=== PATIENT | female | born 1965 | race Caucasian/White ===

== ENCOUNTER 2017-03-09 02:27 | Emergency (ER) | payer OTHER ==
[2017-03-09 02:46] VITALS: BP 163/118
[2017-03-09] MEDS ORDERED: HYDROmorphone 1 MG/ML Syringe IVPUSH ONE (03:33)
[2017-03-09] MEDS ORDERED: Ondansetron 4 MG/2 ML SDV IVPUSH ONE (03:33)
[2017-03-09] MEDS ORDERED: Sodium Chloride 0.9% 1,000 ML IV SCH (03:45)
[2017-03-09] MEDS ORDERED: Diatrizoate Meglumine/Diatrizoate Sodium 37% 120 ML Bottle PO ONE (04:30)
[2017-03-09] MEDS ORDERED: Sodium Chloride 0.9% 10 ML Syringe FLUSH PRN (04:30)
[2017-03-09] MEDS ORDERED: Iopamidol 612 MG/ML 100 ML Bottle IVPUSH ONE (04:30)
--- NOTE | 2017-03-09 04:46 | EDM.PDOC ---
ED HPI GENERAL MEDICAL PROBLEM - General Chief Complaint: Abdominal Pain Stated Complaint: BAD STOMACH PAIN/STOMACH STICKING OUT Time Seen by Provider: 03/09/17 03:00 Source of Information: Reports: Patient, RN Notes Reviewed, Significant Other ( Fiance) History Limitations: Reports: No Limitations - History of Present Illness INITIAL COMMENTS - FREE TEXT/NARRATIVE: The patient states that she has been experiencing upper abdominal pain since Thursday night, 03/04/2017. She states that the pain is sharp/stabbing, and that it waxes and wanes, although has been gone every morning. It recurs after she eats and drinks. When present, she has not identified any modifiers. She denies recent nausea, vomiting, fever, or urinary symptoms. She states that she has had loose bowel movements, but was concerned that she may have some solid stool in the colon, therefore drank some Epsom salts yesterday morning, which further increased her loose bowel movements. The patient has had similar symptoms previously, although less severe. She states that she has abdominal bloating and cramps proximal he wants or twice a week, for years. She has never previously sought medical evaluation. The patient and her fianc are visiting from [place] for a wedding. She reports that she has been drinking tonight, with her last drink around 22:00. Abdomen Pain Score (Numeric/FACES): 10 - Related Data Allergies Allergy/AdvReac Type Severity Reaction Status Date / Time aspirin Allergy cant Verified 03/09/17 03:04 remember Sulfa (Sulfonamide Allergy can't Verified 03/09/17 03:05 Antibiotics) remember Home Meds: Home Meds Acetaminophen/Codeine [Tylenol with Codeine No.3 300MG/30MG] 1 tab PO Q4HR PRN 03/09/17 [History] Diazepam [Valium] 1 tab PO TID 03/09/17 [History] Past Medical History Musculoskeletal History: Reports: Back Pain, Chronic Psychiatric History: Reports: Anxiety - Past Surgical History Female Surgical History: Reports: Section (x 1), Cervical Conization , Tubal Ligation Neurological Surgical History: Reports: Lumbar Spine (L4 discectomy) Social & Family History - Tobacco Use Smoking Status *Q: Current Every Day Smoker Years of Tobacco use: 32 Packs/Tins Daily: 1 - Alcohol Use Alcohol Use History: Yes Alcohol Use Frequency: Socially - Recreational Drug Use Recreational Drug Use: Yes Drug Use in Last 12 Months: Yes Recreational Drug Type: Reports: Marijuana/Hashish Recreational Drug Use Frequency: Daily - Living Situation & Occupation Living situation: Reports: Single, with Significant Other (Fiance) Occupation: Employed ([employer]) ED ROS GENERAL - Review of Systems Review Of Systems: See Below Constitutional: Reports: Fever (About 10 days ago), Chills (About 10 days ago) HEENT: Reports: No Symptoms Respiratory: Reports: No Symptoms Cardiovascular: Reports: No Symptoms Endocrine: Reports: No Symptoms GI/Abdominal: Reports: Nausea (About 10 days ago) : Reports: No Symptoms Musculoskeletal: Reports: No Symptoms Skin: Reports: No Symptoms Neurological: Reports: No Symptoms Psychiatric: Reports: No Symptoms Hematologic/Lymphatic: Reports: No Symptoms Immunologic: Reports: No Symptoms ED EXAM, GI/ABD - Physical Exam Exam: See Below Exam Limited By: No Limitations General Appearance: Alert, WD/WN, Anxious (Appears to be hyperventilating), Moderate Distress Eyes: Bilateral: Normal Appearance, EOMI Ears: Normal External Exam, Hearing Grossly Normal Nose: Normal Inspection, No Blood Throat/Mouth: Normal Inspection, Normal Lips, Normal Voice, No Airway Compromise Head: Atraumatic, Normocephalic Neck: Normal Inspection, Full Range of Motion Respiratory/Chest: No Respiratory Distress, Lungs Clear, Normal Breath Sounds, No Accessory Muscle Use Cardiovascular: Normal Peripheral Pulses, Regular Rate, Rhythm, No Gallop, No JVD, No Murmur, No Rub GI/Abdominal Exam: Normal Bowel Sounds, Soft, No Organomegaly, No Distention, No Abnormal Bruit, No Mass, Tender (Entire abdomen, although primarily to the epigastric region). No: Guarding (Female) Exam: Deferred Rectal (Female) Exam: Deferred Back Exam: Normal Inspection, Full Range of Motion, CVA Tenderness (L) (mild). No: CVA Tenderness (R) Extremities: Normal Inspection, Normal Range of Motion, No Pedal Edema, Normal Capillary Refill Neurological: Alert, Oriented, Normal Cognition, No Motor/Sensory Deficits Psychiatric: Normal Affect, Anxious Skin Exam: Warm, Dry, Intact, Normal Color, No Rash Lymphatic: No Adenopathy Course - Vital Signs Last Recorded V/S: Last Vital Signs Temp 36.6 C 03/09/17 02:42 Pulse 116 H 03/09/17 02:42 Resp 22 H 03/09/17 02:42 BP 163/118 H 03/09/17 02:42 Pulse Ox 100 03/09/17 02:42 - Orders/Labs/Meds Orders: Active Orders 24 hr Category Date Time Status Abdomen Pelvis w Cont [CT] Stat Exams 03/09/17 03:33 Taken Sodium Chloride 0.9% [Normal Saline] 1,000 ml Med 03/09/17 03:45 Active IV ASDIRECTED Sodium Chloride 0.9% [Saline Flush] Med 03/09/17 04:30 Active 10 ml FLUSH ONETIME PRN Medication Orders Sodium Chloride (Normal Saline) 1,000 mls @ 150 mls/hr IV ASDIRECTED JEFFERSON Last Admin: 03/09/17 03:41 Dose: 150 mls/hr Sodium Chloride (Saline Flush) 10 ml FLUSH ONETIME PRN PRN Reason: IV FLUSH Last Admin: 03/09/17 05:00 Dose: 10 ml Labs: Laboratory Tests 03/09/17 03/09/17 03/09/17 Range/Units 02:49 02:49 02:49 WBC 7.00 (3.98-10.04) K/mm3 RBC 4.16 (3.98-5.22) M/mm3 Hgb 13.4 (11.2-15.7) gm/L Hct 39.2 (34.1-44.9) % MCV 94.2 (79.4-94.8) fl MCH 32.2 (25.6-32.2) pg MCHC 34.2 (32.2-35.5) g/dl RDW Std Deviation 46.9 H (36.4-46.3) fL Plt Count 312 (182-369) K/mm3 MPV 10.0 (9.4-12.3) fl Neutrophils % (Manual) 66 H (40-60) % Band Neutrophils % 0 (0-10) % Lymphocytes % (Manual) 32 (20-40) % Atypical Lymphs % 0 % Monocytes % (Manual) 0 L (2-10) % Eosinophils % (Manual) 2 (0.7-5.8) % Basophils % (Manual) 0 L (0.1-1.2) Platelet Estimate Adequate RBC Morph Comment Normal Sodium 134 L (136-145) mEq/L Potassium 4.5 (3.5-5.1) mEq/L Chloride 98 (98-107) mEq/L Carbon Dioxide 20 L (21-32) mEq/L Anion Gap 20.5 H (5-15) BUN 6 L (7-18) mg/dL Creatinine 0.6 (0.55-1.02) mg/dL Est Cr Clr Drug Dosing 113.70 mL/min Estimated GFR (MDRD) > 60 (>60) mL/min BUN/Creatinine Ratio 10.0 L (14-18) Glucose 95 (74-106) mg/dL Calcium 8.8 (8.5-10.1) mg/dL Total Bilirubin 0.4 (0.2-1.0) mg/dL AST 52 H (15-37) U/L ALT 41 (14-59) U/L Alkaline Phosphatase 71 (46-116) U/L Total Protein 7.6 (6.4-8.2) g/dl Albumin 3.8 (3.4-5.0) g/dl Globulin 3.8 gm/dL Albumin/Globulin Ratio 1.0 (1-2) Lipase 180 (73-393) U/L Urine Color (Yellow) Urine Appearance (Clear) Urine pH (5.0-8.0) Ur Specific Sparks (1.005-1.030) Urine Protein (Negative) Urine Glucose (UA) (Negative) Urine Ketones (Negative) Urine Occult Blood (Negative) Urine Nitrite (Negative) Urine Bilirubin (Negative) Urine Urobilinogen (0.2-1.0) Ur Leukocyte Esterase (Negative) Urine RBC (0-5) /hpf Urine WBC (0-5) /hpf Ur Epithelial Cells (0-5) /hpf Urine Bacteria (FEW) /hpf Urine Mucus (FEW) /hpf Urine HCG, Qual (NEGATIVE) Urine Opiates Screen (NEGATIVE) Ur Buprenorphine Scrn (NEGATIVE) Ur Oxycodone Screen (NEGATIVE) Urine Methadone Screen (NEGATIVE) Ur Propoxyphene Screen (NEGATIVE) Ur Barbiturates Screen (NEGATIVE) Ur Tricyclics Screen (NEGATIVE) Ur Phencyclidine Scrn (NEGATIVE) Ur Amphetamine Screen (NEGATIVE) U Methamphetamines Scrn (NEGATIVE) U Benzodiazepines Scrn (NEGATIVE) U Cocaine Metab Screen (NEGATIVE) U Marijuana (THC) Screen (NEGATIVE) Ethyl Alcohol 0.05 (0.00) gm% 03/09/17 03/09/17 03/09/17 Range/Units 03:06 03:06 04:38 WBC (3.98-10.04) K/mm3 RBC (3.98-5.22) M/mm3 Hgb (11.2-15.7) gm/L Hct (34.1-44.9) % MCV (79.4-94.8) fl MCH (25.6-32.2) pg MCHC (32.2-35.5) g/dl RDW Std Deviation (36.4-46.3) fL Plt Count (182-369) K/mm3 MPV (9.4-12.3) fl Neutrophils % (Manual) (40-60) % Band Neutrophils % (0-10) % Lymphocytes % (Manual) (20-40) % Atypical Lymphs % % Monocytes % (Manual) (2-10) % Eosinophils % (Manual) (0.7-5.8) % Basophils % (Manual) (0.1-1.2) Platelet Estimate RBC Morph Comment Sodium (136-145) mEq/L Potassium (3.5-5.1) mEq/L Chloride (98-107) mEq/L Carbon Dioxide (21-32) mEq/L Anion Gap (5-15) BUN (7-18) mg/dL Creatinine (0.55-1.02) mg/dL Est Cr Clr Drug Dosing mL/min Estimated GFR (MDRD) (>60) mL/min BUN/Creatinine Ratio (14-18) Glucose (74-106) mg/dL Calcium (8.5-10.1) mg/dL Total Bilirubin (0.2-1.0) mg/dL AST (15-37) U/L ALT (14-59) U/L Alkaline Phosphatase (46-116) U/L Total Protein (6.4-8.2) g/dl Albumin (3.4-5.0) g/dl Globulin gm/dL Albumin/Globulin Ratio (1-2) Lipase (73-393) U/L Urine Color Yellow (Yellow) Urine Appearance Clear (Clear) Urine pH 7.5 (5.0-8.0) Ur Specific Sparks 1.015 (1.005-1.030) Urine Protein Negative (Negative) Urine Glucose (UA) Negative (Negative) Urine Ketones Negative (Negative) Urine Occult Blood Negative (Negative) Urine Nitrite Negative (Negative) Urine Bilirubin Negative (Negative) Urine Urobilinogen 0.2 (0.2-1.0) Ur Leukocyte Esterase Negative (Negative) Urine RBC 0-5 (0-5) /hpf Urine WBC 0-5 (0-5) /hpf Ur Epithelial Cells 0-5 (0-5) /hpf Urine Bacteria Rare (FEW) /hpf Urine Mucus Not seen (FEW) /hpf Urine HCG, Qual Negative (NEGATIVE) Urine Opiates Screen Presumptive positive H (NEGATIVE) Ur Buprenorphine Scrn Negative (NEGATIVE) Ur Oxycodone Screen Negative (NEGATIVE) Urine Methadone Screen Negative (NEGATIVE) Ur Propoxyphene Screen Negative (NEGATIVE) Ur Barbiturates Screen Negative (NEGATIVE) Ur Tricyclics Screen Negative (NEGATIVE) Ur Phencyclidine Scrn Negative (NEGATIVE) Ur Amphetamine Screen Negative (NEGATIVE) U Methamphetamines Scrn Negative (NEGATIVE) U Benzodiazepines Scrn Presumptive positive H (NEGATIVE) U Cocaine Metab Screen Negative (NEGATIVE) U Marijuana (THC) Screen Negative (NEGATIVE) Ethyl Alcohol (0.00) gm% Meds: Medications Generic Name Dose Route Start Last Admin Trade Name Freq PRN Reason Stop Dose Admin Sodium Chloride 1,000 mls @ 150 mls/hr 03/09/17 03:45 03/09/17 03:41 Normal Saline IV 150 mls/hr ASDIRECTED JEFFERSON Administration Sodium Chloride 10 ml 03/09/17 04:30 03/09/17 05:00 Saline Flush FLUSH 10 ml ONETIME PRN Administration IV FLUSH Discontinued Medications Generic Name Dose Route Start Last Admin Trade Name Freq PRN Reason Stop Dose Admin Diatrizoate Meglum/Diatrizoate Sod 120 ml 03/09/17 04:30 03/09/17 05:00 Gastrografin 37% PO 03/09/17 04:31 90 ml ONETIME ONE Administration Hydromorphone HCl 1 mg 03/09/17 03:33 03/09/17 03:45 Dilaudid IVPUSH 03/09/17 03:34 1 mg ONETIME ONE Administration Iopamidol 100 ml 03/09/17 04:30 03/09/17 05:00 Isovue-300 (61%) IVPUSH 03/09/17 04:31 80 ml ONETIME ONE Administration Ondansetron HCl 4 mg 03/09/17 03:33 03/09/17 03:43 Zofran IVPUSH 03/09/17 03:34 4 mg ONETIME ONE Administration - Re-Assessments/Exams Free Text/Narrative Re-Assessment/Exam: 03/09/17 05:27 CT of the abdomen and pelvis with oral and IV contrast is read by [facility] as: 1. Hepatomegaly, hepatic steatosis. 2. Appendix not definitely visualized. No secondary CT findings of acute appendicitis. 3. Fluid/ oral contrast present within nondilated small bowel. Finding can be associated with ileus/gastroenteritis. 4. Moderate retained stool. 03/09/17 05:35 Test results discussed with the patient. Today's workup is unremarkable, and does not swing the cause of the patient's pain. I suspect that her pain is stomach-related, such as gastritis or an ulcer, however, while painful, those conditions should not be tender to palpation. I am recommending that the patient avoid alcohol, smoking, and ibuprofen. She states that she and her fianc will be heading back to [place] today. I am recommending that if her symptoms continue, that she follow-up with a Network Support Engineer for an EGD once back home. Departure - Departure Time of Disposition: 05:36 Disposition: Home, Self-Care 01 Condition: Good Clinical Impression: Abdominal pain of unknown etiology - Discharge Information Referrals: PCP,None [Primary Care Provider] - Forms: ED Department Discharge Additional Instructions: You were seen in the emergency room for upper abdominal pain for the past 5 days. Workup in the ER included blood work, a urinalysis, a urine test, a urine drug screen, and alcohol level, and a CT scan of your abdomen and pelvis. Your workup was unremarkable. The cause of your abdominal pain is not known. We recommend that you continue to refrain from smoking, that you do not drink alcohol, and avoid ibuprofen, at least until you are feeling better. If your symptoms continue once you return home, we recommend you follow-up with a Network Support Engineer (stomach doctor) for further evaluation, that may include an EGD (stomach scope). If any other problems, please do not hesitate to return to the ER. - My Orders Last 24 Hours: My Active Orders 03/09/17 03:33 Abdomen Pelvis w Cont [CT] Stat 03/09/17 03:45 Sodium Chloride 0.9% [Normal Saline] 1,000 ml IV ASDIRECTED 03/09/17 04:30 Sodium Chloride 0.9% [Saline Flush] 10 ml FLUSH ONETIME PRN - Assessment/Plan Last 24 Hours: My Active Orders 03/09/17 03:33 Abdomen Pelvis w Cont [CT] Stat 03/09/17 03:45 Sodium Chloride 0.9% [Normal Saline] 1,000 ml IV ASDIRECTED 03/09/17 04:30 Sodium Chloride 0.9% [Saline Flush] 10 ml FLUSH ONETIME PRN
--- NOTE | 2017-03-09 09:18 | CT ---
CT abdomen and pelvis Technique: Multiple axial sections were obtained from above the dome of the diaphragm inferiorly through the pubic symphysis. Intravenous and oral contrast has been given. Delayed images were obtained through the bladder. Visualized lung bases show nothing acute. Liver shows no focal parenchymal abnormality. Liver shows mild fatty infiltration and is mildly generous in size. Gallbladder shows no calcified gallstones. Spleen appears within normal limits. Adrenal glands show no nodule. Pancreas is within normal limits. Kidneys show symmetric contrast enhancement without hydronephrosis or mass. Aorta shows atherosclerotic change without aneurysmal dilatation. Mild increased stool noted within the colon. No small bowel dilatation is seen. No pelvic mass or adenopathy is identified. Appendix not seen with certainty. Delayed images show contrast within the bladder. No free fluid or inflammatory change is identified. Bone window settings were reviewed which show mild degenerative change scattered within the spine. Impression: 1. Mild increased stool throughout the colon. 2. Other incidental findings. Nothing acute is seen. Diagnostic code #2 I agree with preliminary report issued by [email or web address] ([facility] preliminary report dictated on 03/09/17, 6:20 AM Central Time)
== END 2017-03-09 05:51 | disposition home or self-care (01) ==
LOC: JD.ED 02:27
DX: R10.30 Lower abdominal pain, unspecified (principal); F17.210 Nicotine dependence, cigarettes, uncomplicated; Z88.6 Allergy status to analgesic agent; Z88.2 Allergy status to sulfonamides
CPT/HCPCS: 36415; 74177; 80053; 80306; 81001; 81025; 83690; 85025; 96361; 96374; 96375; 99284; G0480; J1170; J2405; J7040; J7050; Q9963; Q9967; 99283